=== PATIENT | female | born 1970 | race African-American/Black ===

== ENCOUNTER 2019-08-06 09:49 | Emergency (ER) | payer BC ==
[~2019-08-06] VITALS: Ht 167.6 cm; Wt 84.1 kg
[~2019-08-06 09:49] MED LIST: ALLEVE; IMMODIUM
[2019-08-06 09:55] VITALS: BP 141/81
--- NOTE | 2019-08-06 10:02 | NUR ---
PATIENT AMBULATED WITH STEADY GAIT TO BED 4
[2019-08-06] MEDS ORDERED: NACL 0.9% 1,000 ML IV ONE (10:25)
[2019-08-06] MEDS ORDERED: KETOROLAC 30 MG/ML VIAL IVP ONE (10:25)
--- NOTE | 2019-08-06 10:25 | NUR ---
49 Y/O FEMALE C/O CHEST PAIN SINCE 0200 THIS MORNING, PRESSURE ON CHEST 12/01. NON RADIATING. DENIES SOB. LUNG SOUNDS CLEAR IN ALL LOBES. DENIES ANY RECENT ILLNESS/INJURY. AAOX4. BOWEL SOUNDS NORMO ACTIVE IN ALL QUADRANTS. NO DISTRESS NOTED AT THIS TIME. NO PMH NKA
--- NOTE | 2019-08-06 11:30 | NUR ---
PATIENT REPORTS DECREASE IN CHEST PAIN. NO SOB PRESENT. NO DISTRESS NOTED AT THIS TIME
[2019-08-06] MEDS ORDERED: DEXAMETHASONE 4 MG/ML VIAL PO ONE (11:55)
[2019-08-06 12:28] LABS: BASOPHILS % (AUTO) 0.4 % (0.0-2.0); EOSINOPHILS # (AUTO) 0.2 K/uL (0-0.4); EOSINOPHILS % (AUTO) 3.4 % (0.0-4.0); HEMATOCRIT 44.2 % (36-48); HEMOGLOBIN 14.4 g/dL (12.0-16.0); LYMPHOCYTES # (AUTO) 1.7 K/uL (2.5-16.5); LYMPHOCYTES % (AUTO) 27.1 % (20.5-51.1); MEAN CORPUSCULAR HEMOGLOBIN 28 pg (27-31); MEAN CORPUSCULAR HGB CONC 33 g/dL (33-37); MEAN CORPUSCULAR VOLUME 85.7 fL (80-94); MONOCYTES # (AUTO) 0.5 K/uL (0.8-1.0); MONOCYTES % (AUTO) 7.6 % (1.7-9.3); NEUTROPHILS # (AUTO) 3.9 K/uL (1.8-7.7); NEUTROPHILS % (AUTO) 61.5 % (42.2-75.2); PLATELET COUNT (AUTO) 249 K/uL (140-450); RED BLOOD CELL COUNT(AUTO) 5.15 MIL/uL (4.20-5.40); RED CELL DISTRIBUTION WIDTH 13.8 % (11.6-13.7); WHITE BLOOD COUNT (AUTO) 6.4 K/uL (4.8-10.8)
[2019-08-06 12:53] LABS: ANION GAP 12.2 (8-16); CARBON DIOXIDE 26.8 mmol/L (21-32); CREATININE 0.7 mg/dL (0.6-1.3); TOTAL BILIRUBIN 0.7 mg/dL (0.0-1.0)
[2019-08-06 13:41] VITALS: BP 137/79
--- NOTE | 2019-08-06 13:42 | NUR ---
Patient discharged with v/s stable. Written and verbal after care instructions given and explained. Patient verbalized understanding. Ambulatory with steady gait. All questions addressed prior to discharge. Advised to follow up with PMD.
== END 2019-08-06 13:42 | disposition home or self-care (01) ==
LOC: MED 09:49
DX: R07.9 Chest pain, unspecified (principal); M54.2 Cervicalgia; R20.0 Anesthesia of skin; Z88.1 Allergy status to other antibiotic agents
CPT/HCPCS: 36415; 71045; 80053; 84484; 85025; 85379; 93005; 96374; 99285; J1100; J1885; J7030; Q0092

== ENCOUNTER 2021-10-26 21:32 | Emergency (ER) | payer BC ==
[~2021-10-26] VITALS: Ht 165.1 cm; Wt 87.5 kg
[2021-10-26 21:43] VITALS: BP 125/75
--- NOTE | 2021-10-26 21:48 | NUR ---
pt sent to lobby.
--- NOTE | 2021-10-26 23:45 | NUR ---
PT TAKEN TO BED 5
--- NOTE | 2021-10-27 00:05 | NUR ---
Dr. Rodas examining patient.
[2021-10-27] MEDS ORDERED: SIMETHICONE 40 MG/0.6 ML PO ONE (00:15)
[2021-10-27] MEDS ORDERED: DICYCLOMINE HCL LIQUID 10 MG/5 ML UDC PO ONE (00:15)
[2021-10-27 00:29] LABS: BASOPHILS # (AUTO) 0.1 K/uL (0.00-0.22); BASOPHILS % (AUTO) 0.8 % (0.0-2.0); EOSINOPHILS # (AUTO) 0.7 K/uL (0-0.4); EOSINOPHILS % (AUTO) 6.9 % (0.0-4.0); HEMATOCRIT 45.1 % (36-48); HEMOGLOBIN 14.7 g/dL (12.0-16.0); LYMPHOCYTES # (AUTO) 2.9 K/uL (2.5-16.5); LYMPHOCYTES % (AUTO) 30.7 % (20.5-51.1); MEAN CORPUSCULAR HEMOGLOBIN 28 pg (27-31); MEAN CORPUSCULAR HGB CONC 33 g/dL (33-37); MEAN CORPUSCULAR VOLUME 84.5 fL (80-94); MONOCYTES # (AUTO) 0.8 K/uL (0.8-1.0); MONOCYTES % (AUTO) 8.3 % (1.7-9.3); NEUTROPHILS # (AUTO) 5.1 K/uL (1.8-7.7); NEUTROPHILS % (AUTO) 53.3 % (42.2-75.2); PLATELET COUNT (AUTO) 243 K/uL (140-450); RED BLOOD CELL COUNT(AUTO) 5.33 MIL/uL (4.20-5.40); RED CELL DISTRIBUTION WIDTH 14.2 % (11.6-13.7); WHITE BLOOD COUNT (AUTO) 9.5 K/uL (4.8-10.8)
[2021-10-27 00:46] LABS: ALBUMIN 4.4 g/dL (3.4-5.0); ANION GAP 11.5 (8-16); CREATININE 0.8 mg/dL (0.6-1.3); POTASSIUM 5.5 mmol/L (3.5-5.1); TOTAL BILIRUBIN 0.7 mg/dL (0.0-1.0)
--- NOTE | 2021-10-27 00:47 | NUR ---
X-Ray at bedside.
--- NOTE | 2021-10-27 01:00 | NUR ---
51 Y/O F BIB SELF WITH C/O ABD DISTENTION AND BLOATING SINCE September. PT HAS A HX OF IBS BUT THIS IS NOT A USUAL SYMPTOM. PT STATES THAT SHE HAS NOT BEEN CONSTIPATED OR HAD DIARRHEA. PT HAS BEEN TAKING GAS X WITH NO RELIEF. PT SATES SHE HAD COVID ON September. PT STATES STATES PAIN 7/10 FROM BLOATING. HX: FIBROID SURGERY RX: NONE, PROBIOTICS ALLERGIES: SULFA DRUGS. MAC NUTS, MACROBID
[2021-10-27] MEDS ORDERED: BEN10 PO (02:13)
[2021-10-27] MEDS ORDERED: [UNRECOGNIZED DRUG - CODE] PO (02:13)
[2021-10-27] MEDS ORDERED: WHEA144P PO (02:13)
[2021-10-27] MEDS ORDERED: FUROSEMIDE 40 MG TAB PO ONE (02:25)
[2021-10-27 03:06] VITALS: BP 120/74
--- NOTE | 2021-10-27 03:07 | NUR ---
Patient discharged with v/s stable. Written and verbal after care instructions given and explained. Patient alert, oriented and verbalized understanding of instructions. Ambulatory with steady gait. All questions addressed prior to discharge. ID band removed. Patient advised to follow up with PMD. Rx of BENTYL, GAS-X ULTRA STREENGTH, AND BENEFIBER given. Patient educated on indication of medication including possible reaction and side effects. Opportunity to ask questions provided and answered. VSS, A/OX4, AMBULATORY, UNLABORED BREATHING, AND CALM DEMEANOR.
== END 2021-10-27 03:07 | disposition home or self-care (01) ==
LOC: MED 21:32
DX: K58.9 Irritable bowel syndrome, unspecified (principal); E87.5 Hyperkalemia; Z98.890 Other specified postprocedural states; R14.0 Abdominal distension (gaseous); Z79.899 Other long term (current) drug therapy; Z88.1 Allergy status to other antibiotic agents; Z88.8 Allergy status to other drugs, medicaments and biological substances; Z88.2 Allergy status to sulfonamides
CPT/HCPCS: 36415; 74022; 80053; 83690; 85025; 93005; 99285; Q0092